=== PATIENT | female | born 1930 | race Caucasian/White ===

== ENCOUNTER 2016-04-22 22:45 | Inpatient (IN) | payer MEDICARE ==
[~2016-04-22] VITALS: Ht 167.6 cm; Wt 93.9 kg
[~2016-04-22 22:45] MED LIST: Hydrocodone/Acetaminophen PO
[2016-04-22] MEDS: OXYCODONE/APAP 5/325 TABLET. PO PRN (23:25)
[2016-04-22 23:53] VITALS: BP 141/63
[2016-04-23] MEDS ORDERED: ACETAMINOPHEN 325 MG TABLET. PO PRN
[2016-04-23] MEDS ORDERED: MORPHINE SULFATE 2 MG/ML DISP.SYRIN. IV PRN
[2016-04-23] MEDS ORDERED: ONDANSETRON PF 4 MG/2 ML VIAL. IV PRN
[2016-04-23] MEDS ORDERED: GLYB5TAB3 PO (00:10)
[2016-04-23] MEDS ORDERED: METF500T4 PO (00:10)
[2016-04-23] MEDS: MORPHINE SULFATE 4 MG/ML DISP.SYRIN. IV PRN ×5 (01:00→19:32)
[2016-04-23 03:25] VITALS: BP 146/51
[2016-04-23] MEDS: OXYCODONE/APAP 5/325 TABLET. PO PRN ×4 (05:25→19:32)
[2016-04-23 06:15] LABS: BASO % 0 % (0-3); EOS % 1 % (0-3); HEMATOCRIT 33.2 % (36.0-47.0); HEMOGLOBIN 11.2 g/dL (12.0-15.5); LYMPH # 2.2 x10^3/uL (1.0-4.8); LYMPH % 22 % (24-48); MEAN CORPUSCULAR HEMOGLOBIN 31 pg (25-35); MEAN CORPUSCULAR HGB CONC 34 g/dL (31-37); MEAN CORPUSCULAR VOLUME 93 fL (79-100); MONO % 10 % (0-9); NEUT % 68 % (31-73); PLATELET COUNT 252 x10^3/uL (140-400); RED BLOOD COUNT 3.58 x10^6/uL (3.50-5.40); RED CELL DISTRIBUTION WIDTH 13.4 % (11.5-14.5); WHITE BLOOD COUNT 10.1 x10^3/uL (4.0-11.0)
[2016-04-23 06:36] LABS: ALBUMIN 3.6 g/dL (3.4-5.0); ALBUMIN/GLOBULIN RATIO 1.2 (1.0-1.7); CREATININE 0.9 mg/dL (0.6-1.0); GFR 59.4; POTASSIUM 4.9 mmol/L (3.5-5.1); TOTAL BILIRUBIN 0.4 mg/dL (0.2-1.0); TOTAL PROTEIN 6.7 g/dL (6.4-8.2)
[2016-04-23 07:50] VITALS: BP 110/65
[2016-04-23] MEDS ORDERED: FENTANYL PF 100 MCG/2 ML VIAL. IV PRN (08:00)
[2016-04-23] MEDS: POLYETHYLENE GLYCOL 3350 17 GM PACKET. PO SCH (08:05)
--- NOTE | 2016-04-23 11:03 | PDOC1 ---
History and Physical Date of Admission Date of Admission DATE: 04/23/16 TIME: 11:02 Identification/Chief Complaint Chief Complaint ankle pain Source Source: Chart review, Patient History of Present Illness History of Present Illness transfer from [facility], ER, Dr. Wan. slipped at home, "my right knee gave out on me" pain was 9/10, toshia 4./10 after mult meds hx Arthritis and DM2 only, pain this AM, had not slept overnight, now very tired but easy to arouse needs 2 person full assist Past Medical History Cardiovascular: No pertinent hx Pulmonary: No pertinent hx GI: No pertinent hx Renal/: No pertinent hx Endocrine: Diabetes Past Surgical History Past Surgical History: Appendectomy, Hysterectomy Family History Family History: No Significant Social History Smoke: No ALCOHOL: none Drugs: None Current Medications Current Medications Current Medications Acetaminophen (Tylenol) 650 mg PRN Q6HRS PRN PO MILD PAIN / TEMP; Start at 00:00 Oxycodone/ Acetaminophen (Percocet 5/325) 1 tab PRN Q6HRS PRN PO PAIN Last administered on 04/23/16 08:05; Start 04/23/16 at 00:00 Morphine Sulfate 2 mg PRN Q2HR PRN IV PAIN; Start 04/23/16 at 00:00 Morphine Sulfate 4 mg PRN Q2HR PRN IV PAIN Last administered on 04/23/16 08:05 ; Start 04/23/16 at 00:00 Ondansetron HCl (Zofran) 4 mg PRN Q8HRS PRN IV NAUSEA/VOMITING; Start 04/23/16 at 00:00 Polyethylene Glycol (miraLAX PACKET) 17 gm DAILY PO Last administered on 08:05; Start 04/23/16 at 09:00 Oxycodone/ Acetaminophen (Percocet 5/325) 2 tab PRN Q6HRS PRN PO PAIN; Start at 08:00 Fentanyl Citrate (Fentanyl 2ml Vial) 75 mcg PRN Q4HRS PRN IV PAIN; Start at 08:00 Active Scripts Active [Hydrocodone/Acetaminophen] 1 TAB Tablet 1-2 Tab PO PRN Q6HRS PRN Reported Glyburide 5 Mg Tablet 1 Tab PO BID Metformin Hcl 500 Mg Tablet 1 Tab PO BID Allergies Allergies: Coded Allergies: No Known Drug Allergies (Unverified , 10/11/14) ROS General: No: Appetite, Chills, Fatigue, Malaise, Night Sweats, Other PSYCHOLOGICAL ROS: No: Anxiety, Behavioral Disorder, Concentration difficultie , Decreased libido, Depression, Disorientation, Hallucinations, Hostility, Irritablity, Memory difficulties, Mood Swings, Obsessive thoughts, Other, Physical abuse, Sexual abuse, Sleep disturbances, Suicidal ideation Eyes: No Blurry vision, No Decreased vision, No Double vision, No Dry eyes, No Excessive tearing, No Eye Pain, No Itchy Eyes, No Loss of vision, No Other, No Photophobia, No Scotomata, No Uses contacts, No Uses glasses HEENT: No: Epistaxis, Heacaches, Hearing change, Nasal congestion, Nasal discharge, Oral lesions, Other, Sinus pain, Sneezing, Snoring, Sore Throat, Tinnitus, Vertigo, Visual Changes, Vocal changes Gastrointestinal: Yes Abdominal Pain, Yes Nausea, No Constipation, No Diarrhea, No Hematochezia, No Melena, No Other, No Vomiting Genitourinary: No , No , No , No , No , No , No , No Discharge, No Dysuria, No Flank Pain, No Frequency, No Hematuria, No Incontinence, No Other, No Pain, No Retention, No Urgency Musculoskeletal: No Gait Disturbance, No Joint Pain, No Joint Stiffness, No Joint Swelling, No Muscle Pain, No Muscular Weakness, No Other, No Pain In:, No Swelling In: Neurological: No Behavorial Changes, No Bowel/Bladder ControlChng, No Confusion , No Dizziness, No Gait Disturbance, No Headaches, No Impaired Coord/balance, No Memory Loss, No Numbness/Tingling, No Other, No Seizures, No Speech Problems , No Tremors, No Visual Changes, No Weakness Skin: No Acne, No Dry Skin, No Eczema, No Hair Changes, No Lumps, No Mole Changes, No Mottling, No Nail Changes, No Other, No Pruritus, No Rash, No Skin Lesion Changes Physical Exam General: Alert, Oriented X3, Cooperative, mild distress HEENT: Atraumatic, PERRLA, EOMI Lungs: Clear to auscultation Heart: S1S2 Rectal Exam: not examined Extremities: No clubbing, Normal pulses Skin: No breakdown Neuro: Sensation intact, Cranial nerves 3-12 NL Psych/Mental Status: Mental status NL Vitals Vitals Vital Signs Date Time Temp Pulse Resp B/P Pulse Ox O2 Delivery O2 Flow Rate FiO2 04/23/16 09:05 16 94 Room Air 04/23/16 07:50 97.7 71 110/65 97.7 Labs Labs Laboratory Tests Test 04/22/16 05:20 04/23/16 08:09 White Blood Count 10.1x10^3/uL (4.0-11.0) Red Blood Count 3.58x10^6/uL (3.50-5.40) Hemoglobin 11.2g/dL (12.0-15.5) Hematocrit 33.2% (36.0-47.0) Mean Corpuscular Volume 93fL (79-100) Mean Corpuscular Hemoglobin 31pg (25-35) Mean Corpuscular Hemoglobin Concent 34g/dL (31-37) Red Cell Distribution Width 13.4% (11.5-14.5) Platelet Count 252x10^3/uL (140-400) Neutrophils (%) (Auto) 68% (31-73) Lymphocytes (%) (Auto) 22% (24-48) Monocytes (%) (Auto) 10% (0-9) Eosinophils (%) (Auto) 1% (0-3) Basophils (%) (Auto) 0% (0-3) Neutrophils # (Auto) 6.8x10^3uL (1.8-7.7) Lymphocytes # (Auto) 2.2x10^3/uL (1.0-4.8) Monocytes # (Auto) 1.0x10^3/uL (0.0-1.1) Eosinophils # (Auto) 0.1x10^3/uL (0.0-0.7) Basophils # (Auto) 0.0x10^3/uL (0.0-0.2) Sodium Level 142mmol/L (136-145) Potassium Level 4.9mmol/L (3.5-5.1) Chloride Level 105mmol/L (98-107) Carbon Dioxide Level 27mmol/L (21-32) Anion Gap 10 (6-14) Blood Urea Nitrogen 29mg/dL (7-20) Creatinine 0.9mg/dL (0.6-1.0) Estimated GFR (Cockcroft-Gault) 59.4 BUN/Creatinine Ratio 32 (6-20) Glucose Level 154mg/dL (70-99) Calcium Level 10.0mg/dL (8.5-10.1) Total Bilirubin 0.4mg/dL (0.2-1.0) Aspartate Amino Transf (AST/SGOT) 24U/L (15-37) Alanine Aminotransferase (ALT/SGPT) 24U/L (14-59) Alkaline Phosphatase 44U/L (46-116) IL-Ghh-C-Type Natriuretic Peptide 527pg/mL (0-449) Total Protein 6.7g/dL (6.4-8.2) Albumin 3.6g/dL (3.4-5.0) Albumin/Globulin Ratio 1.2 (1.0-1.7) Thyroid Stimulating Hormone (TSH) 3.149uIU/mL (0.358-3.74) Glucose (Fingerstick) 140mg/dL (70-99) Laboratory Tests Test 04/23/16 08:09 Glucose (Fingerstick) 140mg/dL (70-99) VTE Prophylaxis Ordered VTE Prophylaxis Devices: No VTE Pharmacological Prophylaxi: Yes Assessment/Plan Assessment/Plan Acute right ankle pain distal fibula fracture, Ortho consult, may just boot pain control obesity DM2 osteoarthritis YOKO HAILE MD Apr 23, 2016 11:03
[2016-04-23 11:13] VITALS: BP 126/68
[2016-04-23] MEDS ORDERED: DEXTROSE 50% 25 GM / 50ML DISP.SYRIN. IV PRN (11:15)
[2016-04-23] MEDS ORDERED: ONDANSETRON ODT 4 MG TAB.RAPDIS PO PRN (11:15)
[2016-04-23] MEDS: GLYBURIDE 5 MG TABLET PO SCH ×2 (11:30→17:02)
[2016-04-23] MEDS: METFORMIN 500 MG TABLET. PO SCH ×2 (11:30→17:02)
[2016-04-23] MEDS: INSULIN ASPART 300 UNITS/3 ML INSULN.PEN SQ SCH ×2 (11:40→17:00)
[2016-04-23] MEDS ORDERED: LIDOCAINE 1% PF 2 ML VIAL. INJ ONE (12:30)
[2016-04-23] MEDS ORDERED: methylPREDNISolone ACETATE 80 MG/ML VIAL. IM ONE (12:30)
--- NOTE | 2016-04-23 14:22 | CONS ---
DATE OF CONSULTATION: 04/23/2016 REASON FOR CONSULTATION: Right ankle fracture. HISTORY OF PRESENT ILLNESS: The patient is an 86-year-old female who indicates that she slipped and fell at home. She indicates that her right knee gave out on me. This is a common occurrence. She had her right leg fold under her and had immediate onset of pain, inability to bear weight on the right lower extremity. Mainly, today, she complains of both the right ankle pain, pain in both knees with the left being worse, and some swelling in her legs. She has previously had difficulties getting up and around due to the limitations of her knees giving out. PAST MEDICAL HISTORY: Significant for diabetes and arthritis. PAST SURGICAL HISTORY: Appendectomy and hysterectomy. FAMILY HISTORY: She denies any significant family history, but has several relatives that live well into their 90s. SOCIAL HISTORY: Denies smoking, alcohol, or drug use. She lives with a daughter and has another neighbor that is involved in her care as well. MEDICATIONS: List is reviewed including glyburide and metformin. ALLERGIES: She has no known drug allergies. REVIEW OF SYSTEMS: Denies any head injury, loss of consciousness, upper extremity injury, radiating pain, numbness or tingling, does indicate the swelling and some redness in both lower extremities that has been ongoing. Main complaints now are her right ankle pain and swelling as well as bilateral knee pain. Denies any focal weakness, numbness, tingling, chest pain, shortness of breath, visual changes, headache, or neck or back pain, radiating pain. PHYSICAL EXAMINATION: GENERAL: This is a pleasant, cooperative 86-year-old female, alert and oriented, no acute distress. MUSCULOSKELETAL: No tenderness over the neck or back on palpation. She has normal range of motion, alignment and stability of bilateral shoulders, elbows, and wrists. EXTREMITIES: Examination of the lower extremities, the right ankle is splinted. She has good motion, normal stability, but significant patellofemoral crepitus in bilateral knee joints, good motion of bilateral hips, equal leg lengths. Normal examination of the contralateral left ankle itself, both feet and lower extremities appear to be mildly. She does have 3+ pitting edema, significant redness in the distal aspect of her feet, and no evidence of skin breakdown. LABORATORY EXAMINATION: White count is 10.1. The H and H of 11.2 and 33.2. IMAGING: X-rays show a distal fibula fracture that is acceptably aligned along with a good ankle joint mortise. Her knee x-rays were reviewed, which show significant patellofemoral more so than other compartmental disease. No evidence of fracture, loose body, or other bony abnormality. Tibia and fibula look normal except for the distal fibula fracture noted above. IMPRESSION: 1. Right distal fibula fracture. 2. Bilateral knee pain, left much worse than right and history of knee giving way. TREATMENT PLAN: I plan nonoperative treatment for her distal fibula fracture. She can be weightbearing as tolerated in a Cam walker boot. Regarding the left knee, she appears to have a contusion on top of degenerative change primarily the patellofemoral joint and therefore, after informed consent was obtained, the left knee was injected under sterile conditions from a lateral portal approach with 1 mL Depo-Medrol, which she tolerated well. We will get her up and around with physical therapy as she tolerates, medical supportive care otherwise and anticipate nonoperative treatment with followup x-rays in about 1 week after she has been weightbearing; however, that timeframe. FREDRICK BREWER MD DR: ANIRUDH/karina JOB#: [id number] / [id number]
[2016-04-23 15:05] VITALS: BP 158/61
--- NOTE | 2016-04-23 15:44 | PDOC ---
Provider Note Provider Note Patient was hospitalized with fracture of the fibula. This I believe is being treated conservatively with a boot She complains of shortness of breath climbing up some steps. She has 7 steps at home and gets short of breath and has to wait to catch her breath. She has no shortness of breath on walking on level ground or at night. This symptom did not bother her enough and so she did not mention it to her PCP. She gives no history of firm chest discomfort palpitations or dizziness. She's had no edema of the legs. There is no history of myocardial infarction. There is no clinical evidence of congestive heart failure. Chest x-ray and E KG have not been done as of yet. BNP was elevated. Plan to obtain a chest x-ray EKG and echocardiogram this hospitalization. Thank you Dr. Talavera for asking me to see her. FARRAH LYONS MD Apr 23, 2016 15:44
[2016-04-23 19:15] VITALS: BP 155/71
--- NOTE | 2016-04-23 19:15 | EKG ---
[facility] [address] [place] [address] Test Date: 2016-04-23 Test Time: 19:09:35 Pat Name: NAS ALFARO Department: Room: [facility] Gender: F Manager Market: PENNY : 1930 Requested By: FARRAH LYONS Order Number: [id number] Reading MD: Measurements Intervals [place] Rate: 68 P: 49 NM: 134 QRS: -23 QRSD: 86 T: 9 QT: 366 QTc: 394 Interpretive Statements SINUS RHYTHM LEFTWARD AXIS OTHERWISE NORMAL ECG RI6.01 Unconfirmed report No previous ECG available for comparison
[2016-04-23 23:27] VITALS: BP 142/54
[2016-04-24] MEDS: MORPHINE SULFATE 4 MG/ML DISP.SYRIN. IV PRN ×2 (00:56→05:51)
[2016-04-24 03:10] VITALS: BP 157/64
[2016-04-24] MEDS: OXYCODONE/APAP 5/325 TABLET. PO PRN ×3 (05:51→23:59)
[2016-04-24 06:48] LABS: BASO % 0 % (0-3); EOS % 0 % (0-3); HEMATOCRIT 35.8 % (36.0-47.0); HEMOGLOBIN 11.7 g/dL (12.0-15.5); LYMPH # 1.3 x10^3/uL (1.0-4.8); LYMPH % 12 % (24-48); MEAN CORPUSCULAR HEMOGLOBIN 31 pg (25-35); MEAN CORPUSCULAR HGB CONC 33 g/dL (31-37); MEAN CORPUSCULAR VOLUME 95 fL (79-100); MONO % 3 % (0-9); NEUT % 84 % (31-73); PLATELET COUNT 258 x10^3/uL (140-400); RED BLOOD COUNT 3.77 x10^6/uL (3.50-5.40); RED CELL DISTRIBUTION WIDTH 13.4 % (11.5-14.5); WHITE BLOOD COUNT 10.3 x10^3/uL (4.0-11.0)
[2016-04-24 07:00] VITALS: BP 147/53
[2016-04-24 07:11] LABS: ALBUMIN 3.4 g/dL (3.4-5.0); ALBUMIN/GLOBULIN RATIO 0.8 (1.0-1.7); GFR 52.6; POTASSIUM 4.9 mmol/L (3.5-5.1); TOTAL BILIRUBIN 0.5 mg/dL (0.2-1.0); TOTAL PROTEIN 7.7 g/dL (6.4-8.2)
--- NOTE | 2016-04-24 08:35 | RAD ---
EXAM: Chest one view. HISTORY: Shortness of breath. COMPARISON: None. FINDINGS: A frontal view of the chest is obtained. The left hemidiaphragm is mildly elevated with mild left basilar atelectasis. There is no pneumothorax or pleural effusion. The heart is not enlarged. There is mild glenohumeral osteoarthritis on the right. IMPRESSION: 1. Mild left basilar atelectasis. No confluent infiltrates.
[2016-04-24] MEDS: GLYBURIDE 5 MG TABLET PO SCH ×2 (08:38→17:57)
[2016-04-24] MEDS: METFORMIN 500 MG TABLET. PO SCH ×2 (08:38→17:57)
[2016-04-24] MEDS: POLYETHYLENE GLYCOL 3350 17 GM PACKET. PO SCH (08:39)
[2016-04-24] MEDS: INSULIN ASPART 300 UNITS/3 ML INSULN.PEN SQ SCH ×3 (08:49→18:01)
[2016-04-24 11:00] VITALS: BP 154/56
[2016-04-24] MEDS ORDERED: methylPREDNISolone ACETATE 80 MG/ML VIAL. IM ONE (13:00)
[2016-04-24] MEDS ORDERED: LIDOCAINE 1% PF 2 ML VIAL. INJ ONE (13:00)
--- NOTE | 2016-04-24 14:28 | PDOC ---
PROGRESS NOTES Subjective Subjective Problems overnight: Patient states both knees are hurting she really hasn't gotten significant relief from the left knee injection yet in the right knee seems to be hurting more in addition to her right ankle pain Objective Vital Signs Vital Signs Date Time Temp Pulse Resp B/P Pulse Ox O2 Delivery O2 Flow Rate FiO2 04/24/16 11:00 98.2 66 16 154/56 95 Room Air 98.2 Physical Exam On examination ceci munroe is well fitting she has mild effusions and bilateral knees right knee a bit more painful than the left no evidence of redness or other reaction to the injection yesterday but still moderately tender on motion no instability on either knee distal neurovascular status intact, skin shows some redness at baseline particularly in the distal aspect of the left foot and also on the right foot Labs Laboratory Tests Test 04/23/16 07:30 04/23/16 08:09 04/23/16 12:04 04/23/16 16:41 Nasal Screen MRSA (PCR) Negative (Negative) Glucose (Fingerstick) 140mg/dL (70-99) 135mg/dL (70-99) 194mg/dL (70-99) Test 04/23/16 21:29 04/24/16 06:01 04/24/16 08:03 04/24/16 11:53 Glucose (Fingerstick) 232mg/dL (70-99) 182mg/dL (70-99) 182mg/dL (70-99) White Blood Count 10.3x10^3/uL (4.0-11.0) Red Blood Count 3.77x10^6/uL (3.50-5.40) Hemoglobin 11.7g/dL (12.0-15.5) Hematocrit 35.8% (36.0-47.0) Mean Corpuscular Volume 95fL (79-100) Mean Corpuscular Hemoglobin 31pg (25-35) Mean Corpuscular Hemoglobin Concent 33g/dL (31-37) Red Cell Distribution Width 13.4% (11.5-14.5) Platelet Count 258x10^3/uL (140-400) Neutrophils (%) (Auto) 84% (31-73) Lymphocytes (%) (Auto) 12% (24-48) Monocytes (%) (Auto) 3% (0-9) Eosinophils (%) (Auto) 0% (0-3) Basophils (%) (Auto) 0% (0-3) Neutrophils # (Auto) 8.7x10^3uL (1.8-7.7) Lymphocytes # (Auto) 1.3x10^3/uL (1.0-4.8) Monocytes # (Auto) 0.3x10^3/uL (0.0-1.1) Eosinophils # (Auto) 0.0x10^3/uL (0.0-0.7) Basophils # (Auto) 0.0x10^3/uL (0.0-0.2) Sodium Level 138mmol/L (136-145) Potassium Level 4.9mmol/L (3.5-5.1) Chloride Level 101mmol/L (98-107) Carbon Dioxide Level 25mmol/L (21-32) Anion Gap 12 (6-14) Blood Urea Nitrogen 28mg/dL (7-20) Creatinine 1.0mg/dL (0.6-1.0) Estimated GFR (Cockcroft-Gault) 52.6 BUN/Creatinine Ratio 28 (6-20) Glucose Level 219mg/dL (70-99) Calcium Level 10.0mg/dL (8.5-10.1) Total Bilirubin 0.5mg/dL (0.2-1.0) Aspartate Amino Transf (AST/SGOT) 27U/L (15-37) Alanine Aminotransferase (ALT/SGPT) 28U/L (14-59) Alkaline Phosphatase 53U/L (46-116) Total Protein 7.7g/dL (6.4-8.2) Albumin 3.4g/dL (3.4-5.0) Albumin/Globulin Ratio 0.8 (1.0-1.7) Laboratory Tests Test 04/23/16 16:41 04/23/16 21:29 04/24/16 06:01 04/24/16 08:03 Glucose (Fingerstick) 194mg/dL (70-99) 232mg/dL (70-99) 182mg/dL (70-99) White Blood Count 10.3x10^3/uL (4.0-11.0) Red Blood Count 3.77x10^6/uL (3.50-5.40) Hemoglobin 11.7g/dL (12.0-15.5) Hematocrit 35.8% (36.0-47.0) Mean Corpuscular Volume 95fL (79-100) Mean Corpuscular Hemoglobin 31pg (25-35) Mean Corpuscular Hemoglobin Concent 33g/dL (31-37) Red Cell Distribution Width 13.4% (11.5-14.5) Platelet Count 258x10^3/uL (140-400) Neutrophils (%) (Auto) 84% (31-73) Lymphocytes (%) (Auto) 12% (24-48) Monocytes (%) (Auto) 3% (0-9) Eosinophils (%) (Auto) 0% (0-3) Basophils (%) (Auto) 0% (0-3) Neutrophils # (Auto) 8.7x10^3uL (1.8-7.7) Lymphocytes # (Auto) 1.3x10^3/uL (1.0-4.8) Monocytes # (Auto) 0.3x10^3/uL (0.0-1.1) Eosinophils # (Auto) 0.0x10^3/uL (0.0-0.7) Basophils # (Auto) 0.0x10^3/uL (0.0-0.2) Sodium Level 138mmol/L (136-145) Potassium Level 4.9mmol/L (3.5-5.1) Chloride Level 101mmol/L (98-107) Carbon Dioxide Level 25mmol/L (21-32) Anion Gap 12 (6-14) Blood Urea Nitrogen 28mg/dL (7-20) Creatinine 1.0mg/dL (0.6-1.0) Estimated GFR (Cockcroft-Gault) 52.6 BUN/Creatinine Ratio 28 (6-20) Glucose Level 219mg/dL (70-99) Calcium Level 10.0mg/dL (8.5-10.1) Total Bilirubin 0.5mg/dL (0.2-1.0) Aspartate Amino Transf (AST/SGOT) 27U/L (15-37) Alanine Aminotransferase (ALT/SGPT) 28U/L (14-59) Alkaline Phosphatase 53U/L (46-116) Total Protein 7.7g/dL (6.4-8.2) Albumin 3.4g/dL (3.4-5.0) Albumin/Globulin Ratio 0.8 (1.0-1.7) Test 04/24/16 11:53 Glucose (Fingerstick) 182mg/dL (70-99) Assessment Assessment POD# [], S/P [closed treatment right distal fibula fracture and injection of left knee yesterday] Problems: Plan Plan of Care Her right knee continues to be more tender and after informed consent was obtained right knee was injected with 1 mL 80 mg/mm Depo-Medrol under sterile conditions from a suprapatellar lateral approach which she tolerated well. She will keep track of how well and how long both injections work, today's on the right knee, and yesterday's on the left knee. I did inform her that often takes about 2 days for full relief to occur in a typical scenario Continue mobilize with physical therapy weightbearing as tolerated in cam walker boot on the right Discussed with patient and family FREDRICK BREWER MD Apr 24, 2016 14:28
[2016-04-24 15:00] VITALS: BP 142/51
--- NOTE | 2016-04-24 15:16 | PDOC ---
PROGRESS NOTES Chief Complaint Chief Complaint Acute right ankle pain distal fibula fracture, in an orthotic boot pain control obesity, BMI 33 DM2 osteoarthritis cognitive decline History of Present Illness History of Present Illness feels well pain better can transition with assit, 2 steps Vitals Vitals Vital Signs Date Time Temp Pulse Resp B/P Pulse Ox O2 Delivery O2 Flow Rate FiO2 04/24/16 11:00 98.2 66 16 154/56 95 Room Air 98.2 Physical Exam General: Alert, Oriented X3, Cooperative, mild distress Lungs: Clear Extremities: No clubbing, Normal pulses Skin: No breakdown Labs LABS Laboratory Tests Test 04/23/16 16:41 04/23/16 21:29 04/24/16 06:01 04/24/16 08:03 Glucose (Fingerstick) 194mg/dL (70-99) 232mg/dL (70-99) 182mg/dL (70-99) White Blood Count 10.3x10^3/uL (4.0-11.0) Red Blood Count 3.77x10^6/uL (3.50-5.40) Hemoglobin 11.7g/dL (12.0-15.5) Hematocrit 35.8% (36.0-47.0) Mean Corpuscular Volume 95fL (79-100) Mean Corpuscular Hemoglobin 31pg (25-35) Mean Corpuscular Hemoglobin Concent 33g/dL (31-37) Red Cell Distribution Width 13.4% (11.5-14.5) Platelet Count 258x10^3/uL (140-400) Neutrophils (%) (Auto) 84% (31-73) Lymphocytes (%) (Auto) 12% (24-48) Monocytes (%) (Auto) 3% (0-9) Eosinophils (%) (Auto) 0% (0-3) Basophils (%) (Auto) 0% (0-3) Neutrophils # (Auto) 8.7x10^3uL (1.8-7.7) Lymphocytes # (Auto) 1.3x10^3/uL (1.0-4.8) Monocytes # (Auto) 0.3x10^3/uL (0.0-1.1) Eosinophils # (Auto) 0.0x10^3/uL (0.0-0.7) Basophils # (Auto) 0.0x10^3/uL (0.0-0.2) Sodium Level 138mmol/L (136-145) Potassium Level 4.9mmol/L (3.5-5.1) Chloride Level 101mmol/L (98-107) Carbon Dioxide Level 25mmol/L (21-32) Anion Gap 12 (6-14) Blood Urea Nitrogen 28mg/dL (7-20) Creatinine 1.0mg/dL (0.6-1.0) Estimated GFR (Cockcroft-Gault) 52.6 BUN/Creatinine Ratio 28 (6-20) Glucose Level 219mg/dL (70-99) Calcium Level 10.0mg/dL (8.5-10.1) Total Bilirubin 0.5mg/dL (0.2-1.0) Aspartate Amino Transf (AST/SGOT) 27U/L (15-37) Alanine Aminotransferase (ALT/SGPT) 28U/L (14-59) Alkaline Phosphatase 53U/L (46-116) Total Protein 7.7g/dL (6.4-8.2) Albumin 3.4g/dL (3.4-5.0) Albumin/Globulin Ratio 0.8 (1.0-1.7) Test 04/24/16 11:53 Glucose (Fingerstick) 182mg/dL (70-99) Review of Systems Review of Systems no n.v.d Assessment and Plan Assessmemt and Plan will need placement, snu Problems: Comment Review of Relevant I have reviewed the following items jaclyn (where applicable) has been applied. Labs Laboratory Tests Test 04/23/16 07:30 04/23/16 08:09 04/23/16 12:04 04/23/16 16:41 Nasal Screen MRSA (PCR) Negative (Negative) Glucose (Fingerstick) 140mg/dL (70-99) 135mg/dL (70-99) 194mg/dL (70-99) Test 04/23/16 21:29 04/24/16 06:01 04/24/16 08:03 04/24/16 11:53 Glucose (Fingerstick) 232mg/dL (70-99) 182mg/dL (70-99) 182mg/dL (70-99) White Blood Count 10.3x10^3/uL (4.0-11.0) Red Blood Count 3.77x10^6/uL (3.50-5.40) Hemoglobin 11.7g/dL (12.0-15.5) Hematocrit 35.8% (36.0-47.0) Mean Corpuscular Volume 95fL (79-100) Mean Corpuscular Hemoglobin 31pg (25-35) Mean Corpuscular Hemoglobin Concent 33g/dL (31-37) Red Cell Distribution Width 13.4% (11.5-14.5) Platelet Count 258x10^3/uL (140-400) Neutrophils (%) (Auto) 84% (31-73) Lymphocytes (%) (Auto) 12% (24-48) Monocytes (%) (Auto) 3% (0-9) Eosinophils (%) (Auto) 0% (0-3) Basophils (%) (Auto) 0% (0-3) Neutrophils # (Auto) 8.7x10^3uL (1.8-7.7) Lymphocytes # (Auto) 1.3x10^3/uL (1.0-4.8) Monocytes # (Auto) 0.3x10^3/uL (0.0-1.1) Eosinophils # (Auto) 0.0x10^3/uL (0.0-0.7) Basophils # (Auto) 0.0x10^3/uL (0.0-0.2) Sodium Level 138mmol/L (136-145) Potassium Level 4.9mmol/L (3.5-5.1) Chloride Level 101mmol/L (98-107) Carbon Dioxide Level 25mmol/L (21-32) Anion Gap 12 (6-14) Blood Urea Nitrogen 28mg/dL (7-20) Creatinine 1.0mg/dL (0.6-1.0) Estimated GFR (Cockcroft-Gault) 52.6 BUN/Creatinine Ratio 28 (6-20) Glucose Level 219mg/dL (70-99) Calcium Level 10.0mg/dL (8.5-10.1) Total Bilirubin 0.5mg/dL (0.2-1.0) Aspartate Amino Transf (AST/SGOT) 27U/L (15-37) Alanine Aminotransferase (ALT/SGPT) 28U/L (14-59) Alkaline Phosphatase 53U/L (46-116) Total Protein 7.7g/dL (6.4-8.2) Albumin 3.4g/dL (3.4-5.0) Albumin/Globulin Ratio 0.8 (1.0-1.7) Laboratory Tests Test 04/23/16 16:41 04/23/16 21:29 04/24/16 06:01 04/24/16 08:03 Glucose (Fingerstick) 194mg/dL (70-99) 232mg/dL (70-99) 182mg/dL (70-99) White Blood Count 10.3x10^3/uL (4.0-11.0) Red Blood Count 3.77x10^6/uL (3.50-5.40) Hemoglobin 11.7g/dL (12.0-15.5) Hematocrit 35.8% (36.0-47.0) Mean Corpuscular Volume 95fL (79-100) Mean Corpuscular Hemoglobin 31pg (25-35) Mean Corpuscular Hemoglobin Concent 33g/dL (31-37) Red Cell Distribution Width 13.4% (11.5-14.5) Platelet Count 258x10^3/uL (140-400) Neutrophils (%) (Auto) 84% (31-73) Lymphocytes (%) (Auto) 12% (24-48) Monocytes (%) (Auto) 3% (0-9) Eosinophils (%) (Auto) 0% (0-3) Basophils (%) (Auto) 0% (0-3) Neutrophils # (Auto) 8.7x10^3uL (1.8-7.7) Lymphocytes # (Auto) 1.3x10^3/uL (1.0-4.8) Monocytes # (Auto) 0.3x10^3/uL (0.0-1.1) Eosinophils # (Auto) 0.0x10^3/uL (0.0-0.7) Basophils # (Auto) 0.0x10^3/uL (0.0-0.2) Sodium Level 138mmol/L (136-145) Potassium Level 4.9mmol/L (3.5-5.1) Chloride Level 101mmol/L (98-107) Carbon Dioxide Level 25mmol/L (21-32) Anion Gap 12 (6-14) Blood Urea Nitrogen 28mg/dL (7-20) Creatinine 1.0mg/dL (0.6-1.0) Estimated GFR (Cockcroft-Gault) 52.6 BUN/Creatinine Ratio 28 (6-20) Glucose Level 219mg/dL (70-99) Calcium Level 10.0mg/dL (8.5-10.1) Total Bilirubin 0.5mg/dL (0.2-1.0) Aspartate Amino Transf (AST/SGOT) 27U/L (15-37) Alanine Aminotransferase (ALT/SGPT) 28U/L (14-59) Alkaline Phosphatase 53U/L (46-116) Total Protein 7.7g/dL (6.4-8.2) Albumin 3.4g/dL (3.4-5.0) Albumin/Globulin Ratio 0.8 (1.0-1.7) Test 04/24/16 11:53 Glucose (Fingerstick) 182mg/dL (70-99) Medications Current Medications Acetaminophen (Tylenol) 650 mg PRN Q6HRS PRN PO MILD PAIN / TEMP; Start at 00:00 Oxycodone/ Acetaminophen (Percocet 5/325) 1 tab PRN Q6HRS PRN PO PAIN Last administered on 04/23/16 08:05; Start 04/23/16 at 00:00 Morphine Sulfate 2 mg PRN Q2HR PRN IV PAIN; Start 04/23/16 at 00:00 Morphine Sulfate 4 mg PRN Q2HR PRN IV PAIN Last administered on 04/24/16 05:51 ; Start 04/23/16 at 00:00 Ondansetron HCl (Zofran) 4 mg PRN Q8HRS PRN IV NAUSEA/VOMITING; Start 04/23/16 at 00:00 Polyethylene Glycol (miraLAX PACKET) 17 gm DAILY PO Last administered on 08:39; Start 04/23/16 at 09:00 Oxycodone/ Acetaminophen (Percocet 5/325) 2 tab PRN Q6HRS PRN PO PAIN Last administered on 04/24/16 05:51; Start 04/23/16 at 08:00 Fentanyl Citrate (Fentanyl 2ml Vial) 75 mcg PRN Q4HRS PRN IV PAIN; Start at 08:00 Glyburide (Diabeta) 2.5 mg BIDWMEALS PO Last administered on 04/24/16 08:38; Start 04/23/16 at 11:30 Metformin HCl (Glucophage) 500 mg BIDWMEALS PO Last administered on 04/24/16 08:38; Start 04/23/16 at 11:30 Insulin Aspart (Novolog) 0-7 UNITS TIDWMEALS SQ Last administered on 04/24/16 12:03; Start 04/23/16 at 12:00 Dextrose 12.5 gm PRN Q15MIN PRN IV SEE COMMENTS; Start 04/23/16 at 11:15 Ondansetron HCl (Zofran Odt) 4 mg PRN Q8HRS PRN PO NAUSEA/VOMITING; Start 04/23 at 11:15 Methylprednisolone Acetate (Depo-Medrol 80mg Vial) 80 mg 1X ONCE IM Last administered on 04/23/16 12:20; Start 04/23/16 at 12:30; Stop 04/23/16 at 12:31 ; Status DC Lidocaine HCl (Xylocaine-Mpf 1% Vial) 2 ml 1X ONCE INJ Last administered on 12:21; Start 04/23/16 at 12:30; Stop 04/23/16 at 12:31; Status DC Methylprednisolone Acetate (Depo-Medrol 80mg Vial) 80 mg 1X ONCE IM ; Start 01/29 at 13:00; Stop 04/24/16 at 13:01; Status DC Lidocaine HCl (Xylocaine-Mpf 1% Vial) 1 ml 1X ONCE INJ ; Start 04/24/16 at 13: 00; Stop 04/24/16 at 13:01; Status DC Active Scripts Active [Hydrocodone/Acetaminophen] 1 TAB Tablet 1-2 Tab PO PRN Q6HRS PRN Reported Glyburide 5 Mg Tablet 1 Tab PO BID Metformin Hcl 500 Mg Tablet 1 Tab PO BID Vitals/I & O Vital Sign - Last 24 Hours 04/23/16 04/23/16 04/23/16 04/23/16 19:15 19:32 19:32 20:00 Temp 98.9 98.9 Pulse 71 Resp 18 20 20 B/P 155/71 Pulse Ox 91 95 95 O2 Delivery Room Air Room Air Room Air Room Air 04/23/16 04/23/16 04/24/16 04/24/16 20:02 23:27 00:56 03:10 Temp 98.4 98.6 98.4 98.6 Pulse 65 71 Resp 18 18 18 B/P 142/54 157/64 Pulse Ox 95 91 93 O2 Delivery Room Air Room Air Room Air 04/24/16 04/24/16 04/24/16 04/24/16 05:51 05:51 06:21 06:51 Resp 20 20 20 20 Pulse Ox 93 93 O2 Delivery Room Air Room Air Room Air Room Air 04/24/16 04/24/16 07:00 11:00 Temp 98.2 98.2 98.2 98.2 Pulse 65 66 Resp 20 16 B/P 147/53 154/56 Pulse Ox 92 95 O2 Delivery Room Air Room Air Intake and Output 04/23/16 04/23/16 04/24/16 15:00 23:00 07:00 Intake Total 250 ml 240 ml Balance 250 ml 240 ml YOKO HAILE MD Apr 24, 2016 15:16
[2016-04-24 19:00] VITALS: BP 144/51
[2016-04-24 23:25] VITALS: BP 145/61
[2016-04-25] VITALS (7 sets, daily range): BP systolic 120–185; BP diastolic 57–90
[2016-04-25] MEDS: OXYCODONE/APAP 5/325 TABLET. PO PRN ×3 (06:50→21:25)
[2016-04-25] MEDS: METFORMIN 500 MG TABLET. PO SCH ×2 (08:48→16:54)
[2016-04-25] MEDS: POLYETHYLENE GLYCOL 3350 17 GM PACKET. PO SCH (08:48)
[2016-04-25] MEDS: GLYBURIDE 5 MG TABLET PO SCH ×2 (08:48→16:54)
[2016-04-25] MEDS: INSULIN ASPART 300 UNITS/3 ML INSULN.PEN SQ SCH ×3 (08:53→16:30)
[2016-04-25] MEDS: MORPHINE SULFATE 4 MG/ML DISP.SYRIN. IV PRN (11:34)
--- NOTE | 2016-04-25 14:52 | PDOC ---
PROGRESS NOTES Subjective Subjective Problems overnight: Overall reports that both knees are better left has very significant relief right is certainly better than yesterday Objective Vital Signs Vital Signs Date Time Temp Pulse Resp B/P Pulse Ox O2 Delivery O2 Flow Rate FiO2 04/25/16 12:12 Room Air 04/25/16 10:55 97.7 57 20 149/68 94 97.7 Physical Exam Cam Walker boot on right leg is well fitting left knee shows excellent range of motion right knee much improved good stability intact distal pulses sensation reflexes and skin with some baseline redness distal half of the left foot somewhat on the right foot as well in the lower aspect of both legs and a mild stocking distribution again no worsening in fact some mild improvement of swelling Labs Laboratory Tests Test 04/23/16 16:41 04/23/16 21:29 04/24/16 06:01 04/24/16 08:03 Glucose (Fingerstick) 194mg/dL (70-99) 232mg/dL (70-99) 182mg/dL (70-99) White Blood Count 10.3x10^3/uL (4.0-11.0) Red Blood Count 3.77x10^6/uL (3.50-5.40) Hemoglobin 11.7g/dL (12.0-15.5) Hematocrit 35.8% (36.0-47.0) Mean Corpuscular Volume 95fL (79-100) Mean Corpuscular Hemoglobin 31pg (25-35) Mean Corpuscular Hemoglobin Concent 33g/dL (31-37) Red Cell Distribution Width 13.4% (11.5-14.5) Platelet Count 258x10^3/uL (140-400) Neutrophils (%) (Auto) 84% (31-73) Lymphocytes (%) (Auto) 12% (24-48) Monocytes (%) (Auto) 3% (0-9) Eosinophils (%) (Auto) 0% (0-3) Basophils (%) (Auto) 0% (0-3) Neutrophils # (Auto) 8.7x10^3uL (1.8-7.7) Lymphocytes # (Auto) 1.3x10^3/uL (1.0-4.8) Monocytes # (Auto) 0.3x10^3/uL (0.0-1.1) Eosinophils # (Auto) 0.0x10^3/uL (0.0-0.7) Basophils # (Auto) 0.0x10^3/uL (0.0-0.2) Sodium Level 138mmol/L (136-145) Potassium Level 4.9mmol/L (3.5-5.1) Chloride Level 101mmol/L (98-107) Carbon Dioxide Level 25mmol/L (21-32) Anion Gap 12 (6-14) Blood Urea Nitrogen 28mg/dL (7-20) Creatinine 1.0mg/dL (0.6-1.0) Estimated GFR (Cockcroft-Gault) 52.6 BUN/Creatinine Ratio 28 (6-20) Glucose Level 219mg/dL (70-99) Calcium Level 10.0mg/dL (8.5-10.1) Total Bilirubin 0.5mg/dL (0.2-1.0) Aspartate Amino Transf (AST/SGOT) 27U/L (15-37) Alanine Aminotransferase (ALT/SGPT) 28U/L (14-59) Alkaline Phosphatase 53U/L (46-116) Total Protein 7.7g/dL (6.4-8.2) Albumin 3.4g/dL (3.4-5.0) Albumin/Globulin Ratio 0.8 (1.0-1.7) 25-Hydroxy Vitamin D Total 23.7ng/mL (30.0-100.0) Test 04/24/16 11:53 04/24/16 16:54 04/24/16 21:32 04/25/16 07:56 Glucose (Fingerstick) 182mg/dL (70-99) 164mg/dL (70-99) 232mg/dL (70-99) 165mg/dL (70-99) Test 04/25/16 11:43 Glucose (Fingerstick) 177mg/dL (70-99) Laboratory Tests Test 04/24/16 16:54 04/24/16 21:32 04/25/16 07:56 04/25/16 11:43 Glucose (Fingerstick) 164mg/dL (70-99) 232mg/dL (70-99) 165mg/dL (70-99) 177mg/dL (70-99) Assessment Assessment POD# [], S/P [nonoperative treatment right distal fibula fracture injection of both knees] Problems: Plan Plan of Care She seems to have reacted quite well to the injection of the left knee 2 days ago which has given her very significant relief the right knee much better and just injected yesterday Continue weightbearing as tolerated with Cam Walker boot We will need placement and follow-up in about 1 week in office with x-rays FREDRICK BREWER MD Apr 25, 2016 14:52
--- NOTE | 2016-04-25 17:37 | PDOC ---
PROGRESS NOTES Chief Complaint Chief Complaint Acute right ankle pain ASSESSMENT AND PLAN: 1. L distal fibula fracture: non surgical rx with CAM boot, PT. ?boot off in bed? 2. B knee pain: improved post bilat injections by Dr Escobedo 3. Osteoarthritis: on Tylenol only at home. norco here 4. DM2: well controlled on oral home regimen. continue 5. Low Vit D: start repletion 6. obesity, BMI 33 7. Prophylaxis: lovenox 8. Dispo: d/c to SNF (?[facility]) in AM Vitals Vitals Vital Signs Date Time Temp Pulse Resp B/P Pulse Ox O2 Delivery O2 Flow Rate FiO2 04/25/16 15:00 98.8 55 18 169/68 99 Room Air 98.8 Physical Exam General: Alert, Oriented X3, Cooperative, No acute distress Heart: Regular rate Lungs: Clear Abdomen: Normal bowel sounds, Soft, No tenderness Extremities: No clubbing, Other (L foot in CAM boot. bruising around ankle) Skin: No breakdown Labs LABS Laboratory Tests Test 04/24/16 21:32 04/25/16 07:56 04/25/16 11:43 04/25/16 16:19 Glucose (Fingerstick) 232mg/dL (70-99) 165mg/dL (70-99) 177mg/dL (70-99) 134mg/dL (70-99) Comment Review of Relevant SERA WIER MD Apr 25, 2016 17:37
[2016-04-25] MEDS: CHOLECALCIFEROL (VITAMIN D3) 1,000 UNIT TABLET PO SCH (18:29)
--- NOTE | 2016-04-25 20:25 | CARD ---
APPROVED REPORT EXAM: Two-dimensional and M-mode echocardiogram with Doppler and color Doppler. Other Information Quality : Average Rhythm : NSR INDICATION Dyspnea 2D DIMENSIONS RVDd2.5 (2.9-3.5cm)Left Atrium(2D)4.3 (1.6-4.0cm) IVSd0.9 (0.7-1.1cm)Aortic Root(2D)3.0 (2.0-3.7cm) LVDd4.6 (3.9-5.9cm)LVOT Diameter2.3 (1.8-2.4cm) PWd0.9 (0.7-1.1cm)LVDs2.7 (2.5-4.0cm) FS (%) 40.8 %SV69.5 ml LVEF(%)61.7 (>50%) Aortic Valve AoV Peak Ash.104.5cm/sAoV VTI21.4cm AO Peak GR.4.4mmHgLVOT VTI 20.83cm AO Mean GR.2mmHg Mitral Valve MV E Ysgwaovl70.9cm/sMV E Peak Gr.4mmHg MV DECEL [id number] A Hfouhppp90.5cm/s MV E Mean Gr.2mmHgMV [id number] E/A Ratio1.0MV A [id number] MVA (PHT)3.14cm2 TDI Lateral E' P. V8.49cm/sMedial E' P. V8.19cm/s E/Lateral E'9.1E/Medial E'9.4 Tricuspid Valve TR P. [id number]/sRAP [id number] TR Peak Gr.[id number] LEFT VENTRICLE The left ventricle is normal size. There is normal left ventricular wall thickness. Left ventricle sy stolic function is normal. The Ejection Fraction is 60-65%. There is normal LV segmental wall motion. The left ventricular diastolic function and filling is normal for age. RIGHT VENTRICLE The right ventricle is normal size. The right ventricular systolic function is normal. ATRIA The left atrium is borderline dilated. The right atrium size is normal. The interatrial septum is int act with no evidence for an atrial septal defect or patent foramen ovale as noted on 2-D or Doppler i maging. AORTIC VALVE The aortic valve is calcified but opens well. Doppler and Color Flow revealed no significant aortic r egurgitation. There is no significant aortic valvular stenosis. MITRAL VALVE Mitral annular calcification is mild. There is no mitral valve stenosis. Doppler and Color Flow revea led trace mitral regurgitation. TRICUSPID VALVE The tricuspid valve is normal in structure and function. Doppler and Color Flow revealed trace to mil d tricuspid regurgitation. The PA pressure was estimated at 16 mmHg. There is no tricuspid valve sten osis. PULMONIC VALVE The pulmonic valve is not well visualized. Doppler and Color Flow revealed no pulmonic valvular regur gitation. There is no pulmonic valvular stenosis. GREAT VESSELS The aortic root is normal in size. Pulmonary veins not recorded. The IVC was not visualized. PERICARDIAL EFFUSION There is no evidence of significant pericardial effusion. Critical Notification Critical Value: No <Conclusion> The left ventricle is normal size. There is normal left ventricular wall thickness. Left ventricle systolic function is normal. The Ejection Fraction is 60-65%. Thediastolic function is normal. There is no evidence of significant pericardial effusionThere is nio mitral stenosis or regurgitation The left atrium is mildly enlarged Tghe aortic valve is tricuspid The valve leaflets are thickened There is no aortic stenosis or regurgitation. The right ventricle is of a normal size with normal systolic function. The pilmonary artery systolic pressure is normal. The puklmonic valve is normal IMPRESSION: NORMAL ECHOCARDIOGRAM. .
[2016-04-26] MEDS: OXYCODONE/APAP 5/325 TABLET. PO PRN ×2 (03:00→08:59)
[2016-04-26 03:32] VITALS: BP 176/76
[2016-04-26 06:52] LABS: BASO % 0 % (0-3); EOS % 2 % (0-3); HEMATOCRIT 32.3 % (36.0-47.0); HEMOGLOBIN 10.7 g/dL (12.0-15.5); LYMPH # 2.3 x10^3/uL (1.0-4.8); LYMPH % 23 % (24-48); MEAN CORPUSCULAR HEMOGLOBIN 31 pg (25-35); MEAN CORPUSCULAR HGB CONC 33 g/dL (31-37); MEAN CORPUSCULAR VOLUME 93 fL (79-100); MONO % 9 % (0-9); NEUT % 66 % (31-73); PLATELET COUNT 272 x10^3/uL (140-400); RED BLOOD COUNT 3.47 x10^6/uL (3.50-5.40); RED CELL DISTRIBUTION WIDTH 13.4 % (11.5-14.5); WHITE BLOOD COUNT 10.4 x10^3/uL (4.0-11.0)
[2016-04-26 07:00] VITALS: BP 171/73
[2016-04-26 07:11] LABS: CALCIUM 9.3 mg/dL (8.5-10.1); GFR 52.6; POTASSIUM 4.5 mmol/L (3.5-5.1)
[2016-04-26] MEDS: CHOLECALCIFEROL (VITAMIN D3) 1,000 UNIT TABLET PO SCH (08:56)
[2016-04-26] MEDS: GLYBURIDE 5 MG TABLET PO SCH (08:57)
[2016-04-26] MEDS: POLYETHYLENE GLYCOL 3350 17 GM PACKET. PO SCH (08:57)
[2016-04-26] MEDS: METFORMIN 500 MG TABLET. PO SCH (08:57)
[2016-04-26] MEDS: INSULIN ASPART 300 UNITS/3 ML INSULN.PEN SQ SCH ×2 (09:02→13:43)
[2016-04-26 11:00] VITALS: BP 169/60
--- NOTE | 2016-04-26 11:24 | DISCH ---
DISCHARGE INSTRUCTIONS Condition on Discharge Condition on Discharge: Stable Activity After Discharge Activity Instructions for Disc: Activity as tolerated Diet after Discharge Diet after Discharge: Cardiac Contacting the DRCielo after DC Call your doctor for: If your condition worsens Follow-Up Follow up with: Dr Escobedo in 2 weeks SERA WEIR MD Apr 26, 2016 11:24
[2016-04-26] MEDS ORDERED: ACET325T16 PO (11:28)
[2016-04-26] MEDS ORDERED: POLY17PO5 PO (11:28)
[2016-04-26] MEDS ORDERED: CHOL10002 PO (11:28)
[2016-04-26] MEDS ORDERED: OXYC1TAB7 PO (11:30)
[2016-04-26 15:00] VITALS: BP 188/61
== END 2016-04-26 16:20 | DRG 563 ==
LOC: 4 NORTH 23:36
PROVIDERS: ADMIT Internal Medicine; ATTEND Internal Medicine
PROC: 3E0U33Z Introduction of Anti-inflammatory into Joints, Percutaneous Approach (ICD-10-PCS; principal; 2016-04-24)
DX: S82.831A Other fracture of upper and lower end of right fibula, initial encounter for closed fracture (principal); W01.0XXA Fall on same level from slipping, tripping and stumbling without subsequent striking against object, initial encounter; E11.9 Type 2 diabetes mellitus without complications; E66.9 Obesity, unspecified; M19.90 Unspecified osteoarthritis, unspecified site; M25.561 Pain in right knee; M25.562 Pain in left knee; Z90.49 Acquired absence of other specified parts of digestive tract; Y93.89 Activity, other specified; Z90.710 Acquired absence of both cervix and uterus; Y92.098 Other place in other non-institutional residence as the place of occurrence of the external cause; Z79.899 Other long term (current) drug therapy; Y99.8 Other external cause status; Z68.33 Body mass index [BMI] 33.0-33.9, adult
CPT/HCPCS: 36415; 71010; 80048; 80053; 82306; 82947; 83880; 84443; 85027; 87641; 93005; 93306; J1040; J1815; J2270; J3010; 97110; 97116; 97530; 97535